=== PATIENT | female | born 1990 | race Asian ===

== ENCOUNTER 2022-05-30 12:43 | Emergency (ER) | payer SELFPAY ==
[2022-05-30] MEDS ORDERED: Sodium Chloride 0.9% 10 ML Syringe FLUSH PRN (12:59)
[2022-05-30] MEDS ORDERED: Ondansetron 4 MG/2 ML SDV IVPUSH ONE (13:00)
[2022-05-30] MEDS ORDERED: Sodium Chloride 0.9% 1,000 ML IV ONE (13:00)
[2022-05-30 13:31] LABS: ESTIMATED GFR 56 mL/min (>60)
[2022-05-30] MEDS ORDERED: Potassium Chloride 20 MEQ Tab.ER PO ONE (13:53)
[2022-05-30 15:02] LABS: CORONAVIRUS COVID-19 NAA NEGATIVE (NEGATIVE)
== END 2022-05-30 15:25 | disposition home or self-care (01) ==
LOC: EDBD 12:43 → JD.ED 12:43
DX: R11.2 Nausea with vomiting, unspecified (principal); R19.7 Diarrhea, unspecified; Z20.822 Contact with and (suspected) exposure to COVID-19
CPT/HCPCS: 0240U; 36415; 80053; 85025; 96361; 96374; 99284; A9270; J2405; J3490; J7030; 99283